=== PATIENT | male | born 1985 ===

== ENCOUNTER 2019-02-01 12:59 | Emergency (ER) | payer OTHER ==
--- NOTE | 2019-02-01 19:51 | EDM.PDOC ---
ED HPI GENERAL MEDICAL PROBLEM - General Chief Complaint: Lower Extremity Injury/Pain Stated Complaint: INJURED RT LEG Time Seen by Provider: 02/01/19 13:30 - History of Present Illness INITIAL COMMENTS - FREE TEXT/NARRATIVE: Last night playing around with friends here visiting from out of town and felt a pop in his right knee; pain medial aspect. Mild swollen. He is able to bear some weight but very painful this morning; took ibuprofen with no improvement. Lives in [facility]. Neg medical hx and no allergy. Right Knee Pain Score (Numeric/FACES): 8 - Related Data Allergies Allergy/AdvReac Type Severity Reaction Status Date / Time No Known Allergies Allergy Verified 02/01/19 13:29 Home Meds: Home Meds . [No Known Home Meds] 02/01/19 [History] Past Medical History - Past Health History Medical/Surgical History: Denies Medical/Surgical History Social & Family History - Tobacco Use Smoking Status *Q: Current Every Day Smoker Years of Tobacco use: 15 Packs/Tins Daily: 1 Review of Systems - Review of Systems Review Of Systems: ROS reveals no pertinent complaints other than HPI. Musculoskeletal: Reports: Joint Pain, Other (Right medial knee pain) ED EXAM, GENERAL - Physical Exam Exam: See Below General Appearance: Alert, WD/WN, No Apparent Distress Respiratory/Chest: No Respiratory Distress, Lungs Clear Cardiovascular: Normal Peripheral Pulses, Regular Rate, Rhythm Extremities: Joint Swelling, Other (Right knee mild edema; tender over the mid and inferior MCL) Skin Exam: Warm, Dry, Intact, Normal Color Course - Vital Signs Last Recorded V/S: Last Vital Signs Temp 37.7 C 02/01/19 13:23 Pulse 100 02/01/19 13:23 Resp 16 02/01/19 13:23 BP 105/75 02/01/19 13:23 Pulse Ox 100 02/01/19 13:23 - Orders/Labs/Meds Orders: Active Orders 24 hr Category Date Time Status Knee 1V or 2V Rt [CR] Urgent Exams 02/01/19 13:29 Taken DME for Discharge [COMM] Routine Oth 02/01/19 15:10 Ordered - Radiology Interpretation Free Text/Narrative:: Right knee xray with small joint effusion; no fracture or dislocation Departure - Departure Time of Disposition: 15:30 Disposition: Home, Self-Care 01 Preliminary Cause of *Q: Cardiac Arrest Clinical Impression: Knee MCL sprain - Discharge Information *PRESCRIPTION DRUG MONITORING PROGRAM REVIEWED*: Not Applicable *COPY OF PRESCRIPTION DRUG MONITORING REPORT IN PATIENT PURA: Not Applicable Instructions: Knee Sprain, Adult Referrals: PCP,None [Primary Care Provider] - Forms: ED Department Discharge Additional Instructions: Ibuprofen 600 mg every 6 hours as needed for pain, alternating with tylenol every 4 hours. Call Alt primary care provider for orthopedic consult if symptoms not resolving in 7-10 days. Wear immobilizer and use crutches for to rest knee. Ice to right knee for 20 minutes at a time. - My Orders Last 24 Hours: My Active Orders 02/01/19 13:29 Knee 1V or 2V Rt [CR] Urgent 02/01/19 15:10 DME for Discharge [COMM] Routine - Assessment/Plan Last 24 Hours: My Active Orders 02/01/19 13:29 Knee 1V or 2V Rt [CR] Urgent 02/01/19 15:10 DME for Discharge [COMM] Routine
== END 2019-02-01 15:41 | disposition home or self-care (01) ==
LOC: DL.ED 12:59
DX: S83.411A Sprain of medial collateral ligament of right knee, initial encounter (principal); F17.210 Nicotine dependence, cigarettes, uncomplicated; X50.9XXA Other and unspecified overexertion or strenuous movements or postures, initial encounter
CPT/HCPCS: 73560-RT; 99282; 99283-25